=== PATIENT | female | born 1985 | race Caucasian/White ===

== ENCOUNTER → 2018-07-02 | Outpatient (CLI) | payer OTHER ==
--- NOTE | 2018-07-02 16:09 | RAD ---
Left lower leg ultrasound, 07/02/2018: HISTORY: Medial superior calf lump The area of clinical concern was carefully scanned. It appears to be a calcific process, inseparable from the bone. The overlying soft tissues show no discrete mass or abnormal fluid collection. Correlation with lower leg radiographs is suggested for further evaluation. Electronically signed by: Danish Long MD (07/02/2018 4:06 PM) [facility]
== END | disposition home or self-care (01) ==
LOC: US 07:28 → EDBD 07:28
PROVIDERS: ATTEND Family Medicine
DX: R22.42 Localized swelling, mass and lump, left lower limb (principal); M79.605 Pain in left leg
CPT/HCPCS: 76881

== ENCOUNTER → 2018-08-02 | Outpatient (CLI) | payer OTHER ==
--- NOTE | 2018-08-02 14:46 | RAD ---
2 views left tib-fib without comparison for patient has a mass below the left knee, old injury from falling down the stairs when she was 10-12 years old, pain and tenderness. FINDINGS: There is no fracture or acute osseous abnormality identified. A large exostosis is identified arising from the lateral aspect of the proximal tibial metaphysis. This abnormality is thinly corticated with dense central calcification. No significant degenerative changes. IMPRESSION: 1. No acute osseous normality. 2. Large proximal tibial exostosis with thin cortication and dense central calcification. Though these lesions are most commonly benign, malignant transformation is possible. Given the history of pain and tenderness corresponding this abnormality, further evaluation with MRI with and without gadolinium is recommended. Electronically signed by: Naif Ramachandran MD (08/02/2018 2:43 PM) [facility]
--- NOTE | 2018-08-02 14:48 | RAD ---
3 views left knee without comparison for pain and tenderness in the lower left knee, old injury from falling down the stairs as a child. FINDINGS: No fracture or acute osseous abnormality of the knee. No significant degenerative changes. Largest exostosis arising from the medial proximal tibial metadiaphysis as described on the patient's tib-fib radiographs. IMPRESSION: 1. No acute osseous abnormality of the left knee knee. 2. Large tibial exostosis. Although these are typically benign, given the patient's history of pain and tenderness corresponding this abnormality, further evaluation with MRI of the proximal tibia with and without gadolinium is recommended. Electronically signed by: Naif Ramachandran MD (08/02/2018 2:44 PM) [facility]
== END | disposition home or self-care (01) ==
LOC: RAD 09:22
PROVIDERS: ATTEND Family Medicine
DX: M89.8X6 Other specified disorders of bone, lower leg (principal)
CPT/HCPCS: 73562; 73590

== ENCOUNTER → 2018-08-09 | Outpatient (CLI) | payer OTHER ==
[~2018-08-09] MED LIST: CETI10TA22 PO; DEXT20TA2 PO; GADOBUTROL 10 MMOL/10 ML VIAL IV ONE; OMEP20TA63 PO; TOPI25TA52 PO; VENL75CA PO
--- NOTE | 2018-08-09 10:38 | KCIC ---
MR of the proximal left tibia with and without contrast HISTORY: Large tibial exostosis. Intermittent pain since the patient was 14 years old. Patient states the lesion has grown over the years. TECHNIQUE: Pre and postcontrast images obtained through the proximal tibia. COMPARISON: Radiographs of 08/02/2018. FINDINGS: Large exostosis arises from the medial tibial metaphysis. Measures 5 cm from base to tip. Demonstrates cortical medullary continuity with the underlying [place] tibia. Homogeneous marrow signal within the lesion parallels the signal of the underlying tibia. No acute marrow edema, cortical destruction, soft tissue mass or soft tissue edema. There is a small focus of signal void within the distal aspect of the lesion, correlates with calcification identified on radiographs. The lesion extends into the fat, but its deep aspect does exert some mass effect on the external surface of the medial gastrocnemius which is indented. Muscle signal is intact. Limited visualization of the knee does demonstrate some degenerative change. IMPRESSION: Proximal tibial lesion compatible with a benign osteochondroma. Note that the lesion does exert some mass effect upon the surface of the medial gastrocnemius muscle which is indented. Electronically signed by: Elkin Zhu MD (08/09/2018 10:34 AM) [facility]
== END | disposition home or self-care (01) ==
LOC: KCIC MRI 08:40
PROVIDERS: ATTEND Family Medicine
DX: M89.8X6 Other specified disorders of bone, lower leg (principal)
CPT/HCPCS: 73720; A9585

== ENCOUNTER 2018-10-12 09:15 | Day surgery (SDC) | payer OTHER ==
[~2018-10-12] VITALS: Ht 175.3 cm; Wt 86.2 kg
[~2018-10-12 09:15] MED LIST changes: -GADOBUTROL 10 MMOL/10 ML VIAL IV ONE; +HYDROmorphone 2 MG/ML VIAL IV PRN; +IV RINGERS,LACTATED 1000ML 1,000 ML IV SCH; +MORPHINE SULFATE 2 MG/ML VIAL. IV PRN; +ONDANSETRON PF 4 MG/2 ML VIAL. IV PRN; +PROCHLORPERAZINE 10 MG/2 ML VIAL. IV PRN; +fentaNYL PF VIAL 100 MCG/2 ML VIAL IV PRN
[2018-10-12 09:44] LABS: U PREG PATIENT NEGATIVE (NEG)
[2018-10-12] MEDS ORDERED: LIDOCAINE 2% PF 5 ML VIAL. ONE (10:33)
[2018-10-12] MEDS ORDERED: ONDANSETRON PF 4 MG/2 ML VIAL. ONE (10:33)
[2018-10-12] MEDS ORDERED: PROPOFOL 20 ML IV ONE (10:33)
[2018-10-12] MEDS ORDERED: DEXAMETHASONE SOD PHOS 20 MG/5 ML VIAL. ONE (10:33)
[2018-10-12] MEDS ORDERED: MIDAZOLAM HCL/PF 2 MG/2 ML VIAL. ONE (11:47)
--- NOTE | 2018-10-12 11:56 | DISCH ---
DISCHARGE INSTRUCTIONS Condition on Discharge Condition on Discharge: Stable Activity After Discharge Activity Instructions for Disc: Activity as tolerated Exercise Instruction after Dis: Progress as tolerated Weight Bearing Status after Di: As tolerated Diet after Discharge Diet after Discharge: Regular Wound Incision Care Wound/Incision Care: Change dressing (May remove dressing in 3 days may then shower no soaking until wound check in clinic) Contacting the after DC Call your doctor for: Concerns you may have Follow-Up Follow up with: Reinier 7-10 days CHUCHO VILLAVICENCIO MD Oct 12, 2018 11:56
[2018-10-12] MEDS ORDERED: OXYC1TAB15 PO (11:58)
[2018-10-12] MEDS ORDERED: fentaNYL PF VIAL 100 MCG/2 ML VIAL ONE (12:09)
[2018-10-12] MEDS ORDERED: BUPIVACAINE MPF 0.5% 30 ML VIAL. ONE (12:21)
[2018-10-12] MEDS ORDERED: FAMOTIDINE 20 MG/2 ML VIAL ONE (12:23)
[2018-10-12] MEDS ORDERED: SEVOFLURANE 31 TO 60 MINUTES. IH ONE (12:32)
[2018-10-12] MEDS: fentaNYL PF VIAL 100 MCG/2 ML VIAL IV PRN ×2 (13:17→13:38)
[2018-10-12] MEDS ORDERED: oxyCODONE/APAP 5/325 1 TAB TABLET PO ONE ×2 (14:00→14:15)
[2018-10-12] MEDS ORDERED: oxyCODONE/APAP 5/325 1 TAB TABLET ONE (14:04)
[2018-10-12 14:33] VITALS: BP 125/84
--- NOTE | 2018-10-12 17:59 | PDOC4 ---
Operative Note Operative Note Date of surgery: 10/12/2018 Preoperative diagnosis: Osteochondroma proximal medial tibia Postoperative diagnosis: Same Operative procedure: Excision osteochondroma left proximal medial tibia Surgeon: Reinier Anesthesia: Gen. 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 She said this is very symptomatic with activity or with any pressure on the area and sometimes bothers her at night sleeping as well. I had gone over with her based on the x-ray imaging that this appears to be a common benign tumor [place] osteochondroma. Based on her previous imaging cartilage Does not appear to be excessively thick indicating any significant risk for malignancy. I did covered with her the possible continued observation versus excision of the osteochondroma at its stalk. Based on the ongoing symptoms that she has she wants to undergo surgical excision. She is aware of the possibility of infection nerve or blood vessel damage a minute possibility of malignancy medical or other anesthetic complications among others. All her questions were answered and she wishes to proceed with surgical evaluation and treatment. Operative text: Patient was identified procedure verified patient placed in the supine position on the operative table. After adequate amounts of general anesthesia were administered the left lower extremity was prepped and draped in standard sterile fashion with a thigh tourniquet. After timeout was performed patient procedure identified and verified the left lower extremity was exsanguinated by Esmarch bandage tourniquet inflated to 300 mmHg and an incision was made longitudinally over the palpable area of the osteochondroma. Fascia was dissected sharply with electrocautery and blunt dissection carried out down to the osteochondroma stock the surrounding periosteum was divided to expose the stalk of the osteochondroma which was divided with a sagittal saw. The osteochondroma itself was sent for pathological evaluation and permanent section. The underlying bone was trimmed back flush with the medial proximal tibial metaphysis and constituted a small cortical defect that was thoroughly irrigated with normal saline solution and then covered with bone wax to avoid excessive bleeding. The tourniquet was let letdown bleeding points controlled by electrocautery closure was accomplished with PDS suture at the fascia subcutaneous tenia's Vicryl suture subcuticular Monocryl Steri-Strips and Mastisol along with soft dressings were applied. Patient was returned recovery room in stable condition having tolerated procedure well toes were noted be warm pink following deflation of tourniquet and her distal pulses sensation and motor function were all intact postoperatively in the recovery room as well CHUCHO VILLAVICENCIO MD Oct 12, 2018 17:59
--- NOTE | 2018-10-24 16:07 | PATHOLOGY ---
[facility] Accession Number: [id number] . 01 Material submitted: . LEFT TIBIAL OSTEOCHONDROMA . 01 Clinical history: . Osteochondroma . 02 Diagnosis: Segment of bone and cartilage with focal attached soft tissue, left tibia: - Consistent with osteochondroma. (JPM:[facility] 10/24/2018) P/10/24/2018 . 02 Comment: There is no evidence of malignancy. The case is also examined by Dr. Clark, who concurs with the diagnosis. (JPM:[facility] 10/24/2018) . 02 Electronically signed: . Emiliano Juarez MD, Pathologist NPI- [id number] . 01 Gross description: . The specimen is received in formalin, labeled "Calli Ramirez, left tibial osteochondroma" and consists of a polypoid segment of yellow-gomez bone measuring 5.8 x 3.6 x 2.5 cm. Sectioning reveals variegated yellow-brown cut surfaces with a smooth cartilage cap measuring 0.1 cm. A full thickness longitudinal section is submitted in A1-A2 following decalcification. (SDY; 10/15/2018) SYU/SYU . 02 Pathologist provided ICD-10: D16.9 . 02 CPT . 158671, 591911 Specimen Comment: A courtesy copy of this report has been sent to Specimen Comment: [phone], . Specimen Comment: Report sent to / DR DILLARD Specimen Comment: A duplicate report has been generated due to demographic updates. Performed at: [address], [place], [place] [id number] MD Christian Dotson MD Phone: [phone] Performed at: 02 [facility] [address] [place], [place] [id number] MD Emiliano Juarez MD Phone: [phone]
== END 2018-10-12 14:57 | disposition home or self-care (01) ==
LOC: SURG 09:15
PROVIDERS: ATTEND Orthopaedic Surgery
DX: D16.22 Benign neoplasm of long bones of left lower limb (principal); K21.9 Gastro-esophageal reflux disease without esophagitis; F98.8 Other specified behavioral and emotional disorders with onset usually occurring in childhood and adolescence; Z98.84 Bariatric surgery status; Z79.899 Other long term (current) drug therapy; Z88.8 Allergy status to other drugs, medicaments and biological substances
CPT/HCPCS: 27635; 81025; A7015; J0690; J1100; J1170; J2001; J2250; J2405; J2704; J3010; J3490; 88305; 88311